=== PATIENT | male | born 1935 | race Caucasian/White ===

== ENCOUNTER 2018-01-14 12:56 | Inpatient (IN) ==
[2018-01-14] MEDS ORDERED: HYDROmorphone 2 MG/1 ML VIAL IV STA (13:10)
[2018-01-14] MEDS ORDERED: ONDANSETRON 4 MG/2 ML VIAL IV STA (13:11)
[2018-01-14] MEDS ORDERED: ONDANSETRON 4 MG/2 ML VIAL ONE (13:13)
[2018-01-14] MEDS ORDERED: HYDROmorphone 2 MG/1 ML VIAL ONE (13:13)
[2018-01-14] MEDS ORDERED: NALOXONE 0.4 MG/ML VIAL ONE ×3 (13:55→15:16)
[2018-01-14] MEDS ORDERED: NALOXONE 0.4 MG/ML VIAL IV STA ×3 (14:01→15:15)
[2018-01-14 14:36] LABS: Basophils # 0.1 10*3/uL (0.0-0.2); Basophils % 0.4 % (0.0-0.8); Eosinophils % 0.2 % (0.00-10.9); Hematocrit 44.8 VOL% (42.0-52.0); Immature Granulocytes % 0.9 %; Immature Granulocytes Absolute 0.16 #; Lymphocytes # 0.6 10*3/uL (1.4-4.0); Lymphocytes % 3.8 % (21.2-54.2); Mean Corpuscular Hemoglobin 26 PG (27-34); Mean Corpuscular Volume 89.4 FL (87-102); Mean Platelet Volume 10.1 FL (9.6-12.0); Monocytes % 5.8 % (1.7-12.7); Neutrophils # 15.2 10*3/uL (1.4-7.4); Neutrophils % 88.9 % (38.7-73.9); Platelet Count 384 T/CUMM (130-400); Red Blood Count 5.01 MC/CUMM (3.8-5.5); Red Cell Distribution Width 15.6 % (9.3-17.3); White Blood Count 17.1 T/CUMM (4-12)
[2018-01-14 14:43] LABS: PT Patient Result 10.9 SECS
[2018-01-14 15:02] LABS: Calcium 10.3 MG/DL (8.5-10.1); Osmolality,Calculated 278.5 MOS/KG (273-304); Potassium 3.6 MMOL/L (3.5-5.1)
[2018-01-14 15:08] LABS: Eosinophils 1 % (0-10); Lymphocytes 3 % (20-55); Segmented Neutrophils 93 % (50-85); Total Cells Counted 100
[2018-01-14 15:09] LABS: Platelet Estimate Adequate
[2018-01-14] MEDS ORDERED: ACETAMINOPHEN 325 MG TABLET PO PRN (15:52)
[2018-01-14] MEDS ORDERED: MORPHINE 2 MG/1 ML SYRINGE IV PRN (15:52)
[2018-01-14] MEDS ORDERED: diphenhydrAMINE CAP 25 MG CAPSULE PO PRN (15:52)
[2018-01-14] MEDS ORDERED: guaiFENesin/DM ER 600-30 MG TABLET PO PRN (15:52)
[2018-01-14] MEDS ORDERED: ONDANSETRON 4 MG/2 ML VIAL IV PRN (15:52)
[2018-01-14] MEDS ORDERED: DOCUSATE SODIUM 100 MG CAPSULE PO PRN (15:52)
[2018-01-14] MEDS ORDERED: NICOTINE 21 MG/24 HR PATCH TRANSDERM PRN (15:52)
[2018-01-14] MEDS: NALOXONE 0.4 MG/ML VIAL IV PRN ×2 (16:37→16:41)
[2018-01-14] MEDS: ceFAZolin 1,000 MG in SYRINGE 1 EACH IV SCH ×2 (17:22→23:41)
[2018-01-14] MEDS: SODIUM CHLORIDE 0.9% 1,000 ML IV SCH (17:22)
[2018-01-14] MEDS: PANTOPRAZOLE 40 MG VIAL IV SCH (17:22)
[2018-01-14] MEDS ORDERED: INFLUENZA VIRUS VACCINE 0.5 ML SYRINGE IM ONE (17:43)
[2018-01-14] MEDS ORDERED: PNEUMOCOCCAL VACCINE (13 VALENT) 0.5 ML SYRINGE IM ONE (17:47)
[2018-01-14] MEDS: ALBUTEROL/IPRATROPIUM 3 ML NEB RESP TX SCH (19:00)
[2018-01-15] MEDS: SODIUM CHLORIDE 0.9% 1,000 ML IV SCH ×4 (00:16→17:49)
[2018-01-15] MEDS: ALBUTEROL/IPRATROPIUM 3 ML NEB RESP TX SCH ×4 (00:55→20:49)
[2018-01-15 05:44] LABS: Basophils % 0.1 % (0.0-0.8); Hematocrit 29.8 VOL% (42.0-52.0); Hemoglobin 8.6 GM/DL (14.0-18.0); Immature Granulocytes % 0.7 %; Immature Granulocytes Absolute 0.13 #; Lymphocytes # 0.7 10*3/uL (1.4-4.0); Lymphocytes % 3.7 % (21.2-54.2); Mean Corpuscular HGB Conc 28.9 GM/DL (32-36); Mean Corpuscular Hemoglobin 27 PG (27-34); Mean Corpuscular Volume 92.3 FL (87-102); Mean Platelet Volume 10.3 FL (9.6-12.0); Monocytes # 1.2 10*3/uL (0.11-0.8); Monocytes % 6.7 % (1.7-12.7); Neutrophils # 15.7 10*3/uL (1.4-7.4); Neutrophils % 88.8 % (38.7-73.9); Platelet Count 277 T/CUMM (130-400); Red Blood Count 3.23 MC/CUMM (3.8-5.5); Red Cell Distribution Width 15.4 % (9.3-17.3); White Blood Count 17.7 T/CUMM (4-12)
[2018-01-15 06:23] LABS: Band Neutrophils 2 % (0-10); Hypochromasia 1+; Lymphocytes 2 % (20-55); Microcytosis 1+; Segmented Neutrophils 85 % (50-85); Total Cells Counted 100
[2018-01-15 06:24] LABS: Platelet Estimate Normal
[2018-01-15 06:34] LABS: Calcium 8.3 MG/DL (8.5-10.1); Potassium 4.7 MMOL/L (3.5-5.1)
[2018-01-15] MEDS ORDERED: ceFAZolin 1,000 MG in SYRINGE 1 EACH IV ONE (07:45)
[2018-01-15] MEDS ORDERED: SODIUM CHLORIDE 0.9% 1,000 ML IV PRN (08:51)
[2018-01-15] MEDS: LACTATED RINGERS 1,000 ML IV SCH ×3 (10:35→12:01)
[2018-01-15] MEDS ORDERED: BISACODYL 10 MG SUPP RECTAL PRN (10:55)
[2018-01-15] MEDS ORDERED: LACTULOSE 20 GM/30 ML UDCUP PO PRN (10:55)
[2018-01-15] MEDS ORDERED: MAGNESIUM HYDROXIDE SUSP 30 ML UDCUP PO PRN (10:55)
[2018-01-15] MEDS ORDERED: SUCCINYLCHOLINE 200 MG/10 ML VIAL ONE (12:23)
[2018-01-15] MEDS ORDERED: ONDANSETRON 4 MG/2 ML VIAL ONE (12:23)
[2018-01-15] MEDS ORDERED: fentaNYL 100 MCG/2 ML VIAL ONE (12:23)
[2018-01-15] MEDS ORDERED: KETAMINE 500 MG/10 ML VIAL ONE (12:23)
[2018-01-15] MEDS ORDERED: SEVOFLURANE 1 UNIT/15 MINUTE INH ONE (12:24)
[2018-01-15] MEDS ORDERED: SODIUM CHLORIDE 0.9% 250 ML IV ONE (12:24)
[2018-01-15] MEDS ORDERED: LACTATED RINGERS 1,000 ML IV ONE (12:24)
[2018-01-15] MEDS ORDERED: PHENYLEPHRINE 10 MG/1 ML VIAL IV ONE (12:25)
[2018-01-15 13:07] LABS: ABG Base Excess 1.3 MMOL/L (-2.5-2.5); ABG HCO3 25.6 MMOL/L (20-26); ABG TCO2 30.9 MMOL/L (23-27)
[2018-01-15 13:09] LABS: ABG PH 7.156 (7.35-7.45)
[2018-01-15] MEDS: PHENYLEPHRINE DRIP 40 MG/250 ML PREMIX IV SCH (14:23)
[2018-01-15 15:15] LABS: Apearance,Urine Slightly Hazy (Clear); Bilirubin,Urine Negative (Negative); Blood, Urine Moderate mg/dL (Negative); Glucose,Urine (UA) Negative (Negative); Ketones,Urine Negative (Negative); Nitrite,Urine Negative (Negative); Protein,Urine 30 MG/DL; RBC,Urine 95 /HPF (0-4); Squamous Epithelial Cell,Urine Occasional /HPF (0-10); Urine Color Yellow (Yellow); Urine Specific Gravity 1.012 (1.001-1.035); Urine Urobilinogen < 2.0 EU/DL (0.2-1.0); WBC,Urine 3 /HPF (0-6)
[2018-01-15] MEDS ORDERED: LORazepam 2 MG/1 ML VIAL IV ONE (16:11)
[2018-01-15] MEDS ORDERED: LORazepam 2 MG/1 ML VIAL IV PRN (16:14)
[2018-01-15 16:28] LABS: ABG Base Excess 4.8 MMOL/L (-2.5-2.5); ABG HCO3 30.3 MMOL/L (20-26); ABG Oxygen Saturation 95.6 % (95-100); ABG PCO2 49.5 MM HG (35-48); ABG PH 7.404 (7.35-7.45); ABG PO2 72.9 MM HG (80-95); ABG TCO2 31.8 MMOL/L (23-27)
[2018-01-15] MEDS ORDERED: LORazepam 2 MG/1 ML VIAL IV SCH (16:30)
[2018-01-15] MEDS: ceFAZolin 1,000 MG in SYRINGE 1 EACH IV SCH ×2 (17:43→17:52)
[2018-01-15] MEDS: PANTOPRAZOLE 40 MG VIAL IV SCH (17:47)
[2018-01-15] MEDS: PROPOFOL 1,000 MG/100 ML BOTTLE IV SCH (17:48)
[2018-01-15] MEDS: MORPHINE 2 MG/1 ML SYRINGE IV PRN ×2 (19:40→19:50)
[2018-01-15 19:41] LABS: Hematocrit 33.1 VOL% (42.0-52.0); Hemoglobin 9.9 GM/DL (14.0-18.0)
[2018-01-15] MEDS ORDERED: fentaNYL 100 MCG/2 ML VIAL IV ONE (21:43)
[2018-01-16] MEDS: ALBUTEROL/IPRATROPIUM 3 ML NEB RESP TX SCH ×4 (00:21→19:30)
[2018-01-16] MEDS ORDERED: KETOROLAC 30 MG/1 ML VIAL IV ONE (00:38)
[2018-01-16] MEDS: ceFAZolin 1,000 MG in SYRINGE 1 EACH IV SCH ×3 (01:02→16:01)
[2018-01-16] MEDS: fentaNYL 100 MCG/2 ML VIAL IV PRN ×2 (01:03→03:56)
[2018-01-16] MEDS: SODIUM CHLORIDE 0.9% 1,000 ML IV SCH ×4 (02:00→19:47)
[2018-01-16 05:27] LABS: ABG Base Excess 1.6 MMOL/L (-2.5-2.5); ABG HCO3 25.5 MMOL/L (20-26); ABG Oxygen Saturation 99.1 % (95-100); ABG PCO2 37.3 MM HG (35-48); ABG PH 7.453 (7.35-7.45); ABG PO2 249.1 MM HG (80-95); ABG TCO2 26.7 MMOL/L (23-27); Pt O2 Delivery Device Ventilator
[2018-01-16] MEDS ORDERED: SODIUM CHLORIDE 0.9% 500 ML IV ONE (05:42)
[2018-01-16] MEDS: PHENYLEPHRINE DRIP 40 MG/250 ML PREMIX IV SCH ×2 (05:55→18:18)
[2018-01-16 06:18] LABS: Basophils % 0.1 % (0.0-0.8); Eosinophils % 0.1 % (0.00-10.9); Hematocrit 30.9 VOL% (42.0-52.0); Hemoglobin 9.8 GM/DL (14.0-18.0); Immature Granulocytes % 0.7 %; Immature Granulocytes Absolute 0.12 #; Lymphocytes # 0.8 10*3/uL (1.4-4.0); Lymphocytes % 4.4 % (21.2-54.2); Mean Corpuscular HGB Conc 31.7 GM/DL (32-36); Mean Corpuscular Hemoglobin 27 PG (27-34); Mean Corpuscular Volume 83.5 FL (87-102); Mean Platelet Volume 10.7 FL (9.6-12.0); Monocytes # 1.1 10*3/uL (0.11-0.8); Monocytes % 6.5 % (1.7-12.7); Neutrophils # 15.3 10*3/uL (1.4-7.4); Neutrophils % 88.2 % (38.7-73.9); Platelet Count 184 T/CUMM (130-400); Red Cell Distribution Width 16.6 % (9.3-17.3); White Blood Count 17.3 T/CUMM (4-12)
[2018-01-16 06:54] LABS: Band Neutrophils 3 % (0-10); Lymphocytes 3 % (20-55); Segmented Neutrophils 90 % (50-85); Total Cells Counted 100
[2018-01-16 06:55] LABS: Hypochromasia 1+; Microcytosis 1+; Platelet Estimate Adequate
[2018-01-16 07:42] LABS: Calcium 8.3 MG/DL (8.5-10.1); Osmolality,Calculated 287.1 MOS/KG (273-304); Potassium 4.6 MMOL/L (3.5-5.1)
[2018-01-16] MEDS ORDERED: FUROSEMIDE 20 MG/2 ML VIAL IV ONE (08:00)
[2018-01-16] MEDS: MORPHINE 2 MG/1 ML SYRINGE IV PRN ×2 (09:38→19:47)
[2018-01-16] MEDS: PANTOPRAZOLE 40 MG VIAL IV SCH (09:55)
[2018-01-16 10:46] LABS: ABG PCO2 90.7 MM HG (35-48)
[2018-01-16] MEDS: PROPOFOL 1,000 MG/100 ML BOTTLE IV SCH (18:17)
[2018-01-17] MEDS: MORPHINE 2 MG/1 ML SYRINGE IV PRN ×3 (00:45→20:35)
[2018-01-17] MEDS: ceFAZolin 1,000 MG in SYRINGE 1 EACH IV SCH ×2 (00:46→09:52)
[2018-01-17] MEDS: ALBUTEROL/IPRATROPIUM 3 ML NEB RESP TX SCH ×4 (01:18→19:45)
[2018-01-17] MEDS: PHENYLEPHRINE DRIP 40 MG/250 ML PREMIX IV SCH ×4 (03:02→21:06)
[2018-01-17 03:53] LABS: Basophils % 0.1 % (0.0-0.8); Eosinophils % 0.1 % (0.00-10.9); Hematocrit 31.8 VOL% (42.0-52.0); Hemoglobin 9.7 GM/DL (14.0-18.0); Immature Granulocytes % 0.8 %; Immature Granulocytes Absolute 0.15 #; Lymphocytes # 0.6 10*3/uL (1.4-4.0); Lymphocytes % 3.3 % (21.2-54.2); Mean Corpuscular HGB Conc 30.5 GM/DL (32-36); Mean Corpuscular Hemoglobin 26 PG (27-34); Mean Corpuscular Volume 86.2 FL (87-102); Mean Platelet Volume 11.2 FL (9.6-12.0); Monocytes # 1.4 10*3/uL (0.11-0.8); Monocytes % 7.1 % (1.7-12.7); Neutrophils % 88.6 % (38.7-73.9); Platelet Count 199 T/CUMM (130-400); Red Blood Count 3.69 MC/CUMM (3.8-5.5); Red Cell Distribution Width 16.4 % (9.3-17.3); White Blood Count 19.2 T/CUMM (4-12)
[2018-01-17 04:14] LABS: ABG Base Excess -3.6 MMOL/L (-2.5-2.5); ABG HCO3 21.5 MMOL/L (20-26); ABG Oxygen Saturation 99.9 % (95-100); ABG PCO2 30.9 MM HG (35-48); ABG PH 7.421 (7.35-7.45); ABG TCO2 18.3 MMOL/L (23-27)
[2018-01-17 04:47] LABS: Calcium 8.6 MG/DL (8.5-10.1); Osmolality,Calculated 293.6 MOS/KG (273-304)
[2018-01-17] MEDS: SODIUM CHLORIDE 0.9% 1,000 ML IV SCH ×3 (05:11→22:48)
[2018-01-17 07:51] LABS: Band Neutrophils 5 % (0-10); Hypochromasia 1+; Platelet Estimate Adequate; Segmented Neutrophils 91 % (50-85); Total Cells Counted 100
[2018-01-17] MEDS: PANTOPRAZOLE 40 MG VIAL IV SCH (09:46)
[2018-01-17] MEDS: MEROPENEM 1,000 MG in SYRINGE 1 EACH IV SCH (14:18)
[2018-01-17] MEDS: VANCOMYCIN INJ 750 MG in SODIUM CHLORIDE 0.9% 250 ML IV SCH (14:28)
[2018-01-17] MEDS: PROPOFOL 1,000 MG/100 ML BOTTLE IV SCH (16:57)
[2018-01-17] MEDS: ACETAMINOPHEN 325 MG TABLET PO PRN (20:34)
[2018-01-18] MEDS: VANCOMYCIN INJ 750 MG in SODIUM CHLORIDE 0.9% 250 ML IV SCH ×2 (00:26→15:46)
[2018-01-18] MEDS: MEROPENEM 1,000 MG in SYRINGE 1 EACH IV SCH ×3 (00:26→23:16)
[2018-01-18] MEDS: ACETAMINOPHEN 325 MG TABLET PO PRN ×2 (00:33→19:09)
[2018-01-18] MEDS: ALBUTEROL/IPRATROPIUM 3 ML NEB RESP TX SCH ×4 (01:25→20:27)
[2018-01-18 04:03] LABS: ABG Base Excess -4.3 MMOL/L (-2.5-2.5); ABG HCO3 18.7 MMOL/L (20-26); ABG Oxygen Saturation 97.5 % (95-100); ABG PCO2 27.6 MM HG (35-48); ABG PH 7.448 (7.35-7.45); ABG PO2 99.4 MM HG (80-95); ABG TCO2 19.5 MMOL/L (23-27)
[2018-01-18 04:57] LABS: Calcium 9.3 MG/DL (8.5-10.1); Osmolality,Calculated 296.1 MOS/KG (273-304); Potassium 3.5 MMOL/L (3.5-5.1)
[2018-01-18] MEDS: SODIUM CHLORIDE 0.9% 1,000 ML IV SCH ×2 (07:51→16:28)
[2018-01-18] MEDS: PHENYLEPHRINE DRIP 40 MG/250 ML PREMIX IV SCH ×2 (07:52→18:15)
[2018-01-18] MEDS: PANTOPRAZOLE 40 MG VIAL IV SCH (09:16)
[2018-01-18] MEDS: MORPHINE 2 MG/1 ML SYRINGE IV PRN (09:18)
[2018-01-18] MEDS: PROPOFOL 1,000 MG/100 ML BOTTLE IV SCH (12:05)
[2018-01-19] MEDS: ACETAMINOPHEN 325 MG TABLET PO PRN (00:13)
[2018-01-19] MEDS: SODIUM CHLORIDE 0.9% 1,000 ML IV SCH ×3 (00:14→09:52)
[2018-01-19] MEDS: ALBUTEROL/IPRATROPIUM 3 ML NEB RESP TX SCH ×4 (01:03→20:07)
[2018-01-19 03:24] LABS: ABG Base Excess -4.7 MMOL/L (-2.5-2.5); ABG Oxygen Saturation 96.8 % (95-100); ABG PCO2 35.4 MM HG (35-48); ABG PH 7.369 (7.35-7.45); ABG PO2 94.5 MM HG (80-95)
[2018-01-19 04:26] LABS: Basophils % 0.1 % (0.0-0.8); Eosinophils % 0.3 % (0.00-10.9); Hematocrit 35.4 VOL% (42.0-52.0); Immature Granulocytes % 0.8 %; Immature Granulocytes Absolute 0.12 #; Lymphocytes # 0.6 10*3/uL (1.4-4.0); Lymphocytes % 3.9 % (21.2-54.2); Mean Corpuscular HGB Conc 31.1 GM/DL (32-36); Mean Corpuscular Hemoglobin 27 PG (27-34); Mean Corpuscular Volume 85.5 FL (87-102); Mean Platelet Volume 11.4 FL (9.6-12.0); Monocytes # 1.3 10*3/uL (0.11-0.8); Monocytes % 8.3 % (1.7-12.7); NRBC # 0.03 10*3/uL; Neutrophils # 13.6 10*3/uL (1.4-7.4); Neutrophils % 86.6 % (38.7-73.9); Platelet Count 170 T/CUMM (130-400); Red Blood Count 4.14 MC/CUMM (3.8-5.5); Red Cell Distribution Width 16.9 % (9.3-17.3); White Blood Count 15.7 T/CUMM (4-12)
[2018-01-19 04:53] LABS: Burr Cells Few; Eosinophils 1 % (0-10); Hypochromasia 1+; Lymphocytes 4 % (20-55); Microcytosis 1+; Segmented Neutrophils 91 % (50-85); Total Cells Counted 100
[2018-01-19 04:57] LABS: Calcium 9.4 MG/DL (8.5-10.1); Potassium 3.4 MMOL/L (3.5-5.1)
[2018-01-19] MEDS: VANCOMYCIN INJ 750 MG in SODIUM CHLORIDE 0.9% 250 ML IV SCH ×3 (05:28→21:37)
[2018-01-19] MEDS: PHENYLEPHRINE DRIP 40 MG/250 ML PREMIX IV SCH ×3 (06:15→17:21)
[2018-01-19] MEDS: DEXTROSE 5% 1,000 ML IV SCH ×3 (09:31→21:06)
[2018-01-19] MEDS: PANTOPRAZOLE 40 MG VIAL IV SCH (09:40)
[2018-01-19] MEDS: POTASSIUM CHLORIDE 20 MEQ/15 ML UDCUP PER TUBE PRN ×3 (09:48→13:45)
[2018-01-19 10:49] LABS: ABG Base Excess -4.4 MMOL/L (-2.5-2.5); ABG HCO3 20.6 MMOL/L (20-26); ABG Oxygen Saturation 85.5 % (95-100); ABG PCO2 37.2 MM HG (35-48); ABG PH 7.353 (7.35-7.45); ABG TCO2 18.5 MMOL/L (23-27); Allen Test Positive
[2018-01-19] MEDS: MEROPENEM 1,000 MG in SYRINGE 1 EACH IV SCH ×2 (11:00→23:18)
[2018-01-19] MEDS ORDERED: methylPREDNISolone SOD SUC 40 MG/1 ML VIAL IV ONE (11:05)
[2018-01-19 12:12] LABS: ABG Base Excess -4.3 MMOL/L (-2.5-2.5); ABG HCO3 20.7 MMOL/L (20-26); ABG PCO2 37.4 MM HG (35-48); ABG PH 7.353 (7.35-7.45); ABG TCO2 18.6 MMOL/L (23-27); Allen Test Positive
[2018-01-19] MEDS: PROPOFOL 1,000 MG/100 ML BOTTLE IV SCH (13:09)
[2018-01-20] MEDS: ALBUTEROL/IPRATROPIUM 3 ML NEB RESP TX SCH ×4 (01:00→19:20)
[2018-01-20] MEDS: DEXTROSE 5% 1,000 ML IV SCH ×3 (03:23→18:38)
[2018-01-20 04:47] LABS: ABG Base Excess 0.4 MMOL/L (-2.5-2.5); ABG HCO3 24.6 MMOL/L (20-26); ABG PCO2 36.7 MM HG (35-48); ABG TCO2 21.7 MMOL/L (23-27); Allen Test Positive; Pt O2 Delivery Device Venturi Mask
[2018-01-20] MEDS: VANCOMYCIN INJ 750 MG in SODIUM CHLORIDE 0.9% 250 ML IV SCH ×3 (04:57→21:24)
[2018-01-20 05:04] LABS: Basophils % 0.1 % (0.0-0.8); Hematocrit 39.9 VOL% (42.0-52.0); Hemoglobin 12.7 GM/DL (14.0-18.0); Immature Granulocytes % 0.6 %; Immature Granulocytes Absolute 0.11 #; Lymphocytes # 0.4 10*3/uL (1.4-4.0); Lymphocytes % 2.3 % (21.2-54.2); Mean Corpuscular HGB Conc 31.8 GM/DL (32-36); Mean Corpuscular Hemoglobin 27 PG (27-34); Mean Corpuscular Volume 84.7 FL (87-102); Mean Platelet Volume 11.2 FL (9.6-12.0); Monocytes # 0.6 10*3/uL (0.11-0.8); Monocytes % 3.5 % (1.7-12.7); NRBC # 0.02 10*3/uL; Neutrophils # 16.1 10*3/uL (1.4-7.4); Neutrophils % 93.5 % (38.7-73.9); Platelet Count 148 T/CUMM (130-400); Red Blood Count 4.71 MC/CUMM (3.8-5.5); Red Cell Distribution Width 17.3 % (9.3-17.3); White Blood Count 17.2 T/CUMM (4-12)
[2018-01-20 05:41] LABS: Alanine Aminotransferase < 9 U/L (16-61); Albumin 1.2 G/DL (3.4-5.0); Alkaline Phosphatase 115 U/L (45-117); Aspartate Amino Transferase 20 U/L (0-37); Blood Urea Nitrogen 15 MG/DL (7-18); Calcium 9.5 MG/DL (8.5-10.1); Glucose 173 MG/DL (74-106); Osmolality,Calculated 294.6 MOS/KG (273-304); Potassium 3.5 MMOL/L (3.5-5.1); Sodium 146 MMOL/L (136-145); Total Protein 4.5 G/DL (6.4-8.3)
[2018-01-20 05:45] LABS: Band Neutrophils 1 % (0-10); Lymphocytes 2 % (20-55); Segmented Neutrophils 94 % (50-85); Total Cells Counted 100
[2018-01-20 05:46] LABS: Burr Cells Slight; Giant Platelets Few; Microcytosis Slight; Ovalocytes Slight; Platelet Estimate Normal
[2018-01-20] MEDS: PANTOPRAZOLE 40 MG VIAL IV SCH (08:45)
[2018-01-20] MEDS: MEROPENEM 1,000 MG in SYRINGE 1 EACH IV SCH ×2 (10:57→23:22)
[2018-01-20] MEDS ORDERED: MORPHINE 10 MG/1 ML VIAL IV PRN (14:30)
[2018-01-20] MEDS: MORPHINE 10 MG/1 ML VIAL IV PRN (14:44)
[2018-01-20] MEDS: PHENYLEPHRINE DRIP 40 MG/250 ML PREMIX IV SCH (20:09)
[2018-01-21] MEDS: ALBUTEROL/IPRATROPIUM 3 ML NEB RESP TX SCH ×4 (00:13→19:33)
[2018-01-21] MEDS: VANCOMYCIN INJ 750 MG in SODIUM CHLORIDE 0.9% 250 ML IV SCH ×3 (06:21→21:52)
[2018-01-21] MEDS: PANTOPRAZOLE 40 MG VIAL IV SCH (09:16)
[2018-01-21] MEDS: ALBUMIN 25% 25 GM in PREMIX 1 EACH IV SCH ×2 (09:16→20:35)
[2018-01-21] MEDS: MORPHINE 10 MG/1 ML VIAL IV PRN (10:33)
[2018-01-21] MEDS: MEROPENEM 1,000 MG in SYRINGE 1 EACH IV SCH ×2 (11:00→23:05)
[2018-01-21] MEDS: DEXTROSE 5% 1,000 ML IV SCH ×2 (15:20→23:05)
[2018-01-21] MEDS: PHENYLEPHRINE DRIP 40 MG/250 ML PREMIX IV SCH (19:53)
[2018-01-22] MEDS: ALBUTEROL/IPRATROPIUM 3 ML NEB RESP TX SCH ×2 (00:40→07:36)
[2018-01-22] MEDS: VANCOMYCIN INJ 750 MG in SODIUM CHLORIDE 0.9% 250 ML IV SCH ×2 (05:17→13:18)
[2018-01-22] MEDS: PANTOPRAZOLE 40 MG VIAL IV SCH (08:44)
[2018-01-22] MEDS: ALBUMIN 25% 25 GM in PREMIX 1 EACH IV SCH (08:44)
[2018-01-22 11:59] VITALS: BP 116/53
[2018-01-22] MEDS: MEROPENEM 1,000 MG in SYRINGE 1 EACH IV SCH (12:40)
[2018-01-22 13:23] LABS: Calcium 9.6 MG/DL (8.5-10.1)
[2018-01-22 13:25] LABS: Potassium 2.5 MMOL/L (3.5-5.1)
[2018-01-22] MEDS: POTASSIUM CHLORIDE 20 MEQ/15 ML UDCUP PER TUBE PRN (13:45)
[2018-01-22] MEDS ORDERED: SPIRONOLACTONE 50 MG TABLET PO SCH (15:00)
[2018-01-23] MEDS ORDERED: VANCOMYCIN INJ 750 MG in SODIUM CHLORIDE 0.9% 250 ML IV SCH (02:00)
== END 2018-01-22 16:40 | disposition expired | DRG 853 ==
LOC: EDBD → EDUNIT# → N.ED 12:56 → N.EDINP 14:44 → SUATTDRO 14:44 → N.EDINP 16:15 → N.3E 16:21 → N.CC 01-15 13:30 → N.ICU 01-18 16:43 → N.3E 01-21 11:23
PROVIDERS: ADMIT Family Medicine; ATTEND Hospitalist